=== PATIENT | male | born 1970 | race Caucasian/White ===

== ENCOUNTER 2017-01-03 21:55 | Emergency (ER) | payer BC ==
[2017-01-03 22:14] VITALS: TEMP 97.7
--- NOTE | 2017-01-03 22:33 | ED.PDOC ---
History of Present Illness - General Chief Complaint: Lower Extremity Injury Stated Complaint: rt knee pain Time Seen by Provider: 01/03/17 22:29 Source: patient, Vital Signs reviewed Exam Limitations: no limitations - History of Present Illness Initial Comments: Lindsay Jose 46 y/o male stated that a metal door swung open and struck his right knee then had pain on weight bearing after incident Occurred: this evening Pain - Lower Extremity: moderate: Right Knee Method of Injury: direct blow Improving Factors: rest Worsening Factors: movement Associated Symptoms: see HPI Allergies/Adverse Reactions: Allergies Iodine Adverse Reaction (Verified 01/06/16 04:21) Home Medications: Ambulatory Orders Effexor 01/03/17 Naproxen [Naprosyn] 500 mg PO BID #20 tab 01/03/17 Topamax 01/03/17 Review of Systems - Review of Systems Constitutional: States: no symptoms reported EENTM: States: no symptoms reported Respiratory: States: no symptoms reported Cardiology: States: no symptoms reported Musculoskeletal: States: see HPI Past Medical History (General) - Patient Medical History Hx Seizures: No Hx Stroke: No Hx Dementia: No Hx Asthma: No Hx Cardiac Disorders: No Hx Diabetes: No - Vaccination History Hx Tetanus, Diphtheria Vaccination: No Hx Influenza Vaccination: No Hx Pneumococcal Vaccination: No Immunizations Up to Date: Yes - Social History Hx Tobacco Use: No Hx Chewing Tobacco Use: Yes Hx Alcohol Use: Yes Hx Substance Use: No Hx Substance Use Treatment: No Hx Depression: No - Female History Patient : No Family Medical History - Family History Mother Family History: Unknown Living Status: Unknown Physical Exam - Physical Exam General Appearance: Alert, No apparent distress Eyes, Ears, Nose, Throat: PERRL/EOMI, normal ENT inspection Neck: non-tender, full range of motion Cardiovascular/Respiratory: regular rate, rhythm, no M/R/G, normal peripheral pulses Gastrointestinal/Abdominal: non-tender Back: no CVA tenderness, no vertebral tenderness Thigh/Hip: no evidence of injury Leg: no evidence of injury Knee: bone tenderness - right, limited ROM - due to pain Ankle: no evidence of injury Foot: no evidence of injury Neuro/Tendon: normal motor functions, normal tendon functions Mental Status: oriented x 3 Skin: normal color, warm/dry Progress - Progress Progress: 01/03/17 22:37 Vital Signs - 8 hr 01/03/17 22:12 Temperature 97.7 F Pulse Rate [ 67 Right] Respiratory 16 Rate Blood Pressure 120/72 [Left Arm] - EKG/XRAY/CT XRAY: knee - right-no fracture Departure - Departure Clinical Impression: Knee pain, right anterior Contusion of knee, right Qualifiers: Encounter type: initial encounter Qualified Code(s): S80.01XA - Contusion of right knee, initial encounter Time of Disposition: 22:46 Disposition: Discharge to Home or Self Care Departure Forms: ED Discharge - Pt. Copy, Patient Portal Self Enrollment Instructions: DI for Contusion Referrals: Frankie Dixon MD [Primary Care Provider] - 1-2 Weeks Prescriptions: Naproxen [Naprosyn] 500 mg PO BID #20 tab Home Medications: Ambulatory Orders Effexor 01/03/17 Naproxen [Naprosyn] 500 mg PO BID #20 tab 01/03/17 Topamax 01/03/17 Additional Instructions: ICE pack to affected area am/pm for 20 minutes during waking hours only for 7 days;Follow up with primary md 01/06 2017
--- NOTE | 2017-01-03 22:43 | RAD ---
EXAM DESCRIPTION: Knee,Right 2 or More Views CLINICAL HISTORY: 46 years Male metal container handle struck knee COMPARISON: None. TECHNIQUE: Right knee, 3 views FINDINGS: No acute fractures or dislocations are identified. No osseous destructive lesions. No joint effusion is noted. IMPRESSION: No acute fracture is identified. Electronically signed by: Sybil Mayers 01/03/2017 10:42 PM CDT
[2017-01-03] MEDS ORDERED: HYDROCOD/APAP 10/325 (ER DISP) # 3 tablets PO ONE (22:49)
[2017-01-03 23:05] VITALS: BP 122/74; O2SAT 100
== END 2017-01-03 23:04 | disposition home or self-care (01) ==
LOC: ER 21:55
DX: S80.01XA Contusion of right knee, initial encounter (principal); Z88.8 Allergy status to other drugs, medicaments and biological substances; W22.8XXA Striking against or struck by other objects, initial encounter; Y92.9 Unspecified place or not applicable